=== PATIENT | female | born 1940 | race Caucasian/White ===

== ENCOUNTER 2016-08-31 11:08 | Outpatient (CLI) | payer OTHER | END 2016-08-31 11:09 | disposition home or self-care (01) | DX: Z01.810 Encounter for preprocedural cardiovascular examination (principal); M17.11 Unilateral primary osteoarthritis, right knee ==

== ENCOUNTER 2016-09-25 06:09 | Inpatient (IN) | payer MEDICARE ==
[2016-09-25] MEDS ORDERED: LACTATED RINGERS 1,000 ML IV ONE (07:00)
[2016-09-25] MEDS ORDERED: ceFAZolin 2 GM/50 ML 50 ML IV ONE (07:04)
[2016-09-25] MEDS ORDERED: MORPHINE PF 5 MG/10 ML AMP SUBQ ONE (08:40)
[2016-09-25] MEDS ORDERED: KETOROLAC 15 MG/ML VIAL IM ONE (08:41)
[2016-09-25] MEDS ORDERED: EPINEPHrine 1 MG/ML AMP SUBQ ONE (08:41)
[2016-09-25] MEDS ORDERED: ROPIVACAINE 0.2% PF 20 ML AMPULE SUBQ ONE (08:42)
[2016-09-25] MEDS ORDERED: BUPIVACAINE 0.5%-EPI 1:200000 PF 30 ML VIAL SUBQ ONE ×2 (08:42)
[2016-09-25] MEDS ORDERED: TRANEXAMIC ACID 1,000 MG/10 ML VIAL IV ONE (08:45)
[2016-09-25] MEDS ORDERED: fentaNYL 100 MCG/2 ML VIAL IVP ONE (08:45)
[2016-09-25] MEDS ORDERED: ACETAMINOPHEN 1,000 MG/100 ML VIAL IV ONE (08:45)
[2016-09-25] MEDS ORDERED: MIDAZOLAM 2 MG/2 ML VIAL IVP ONE (08:45)
[2016-09-25] MEDS ORDERED: LIDOCAINE-MPF 2% 5 ML VIAL IM ONE (08:45)
[2016-09-25] MEDS ORDERED: ePHEDrine 50 MG/ML AMP IVP ONE (08:45)
[2016-09-25] MEDS ORDERED: PROPOFOL 200 MG/20 ML VIAL IVP ONE (08:45)
[2016-09-25] MEDS ORDERED: DOCUSATE SODIUM 100 MG CAPSULE PO PRN (10:59)
[2016-09-25] MEDS ORDERED: ONDANSETRON 4 MG/2 ML VIAL IVP PRN (10:59)
[2016-09-25] MEDS ORDERED: diphenhydrAMINE 25 MG CAPSULE PO PRN (10:59)
[2016-09-25] MEDS ORDERED: SENNA 8.6 MG TABLET PO PRN (10:59)
[2016-09-25] MEDS ORDERED: ACETAMINOPHEN 325 MG TABLET PO PRN (10:59)
[2016-09-25] MEDS ORDERED: PROCHLORPERAZINE 10 MG/2 ML VIAL IVP PRN (10:59)
[2016-09-25] MEDS ORDERED: BISACODYL 5 MG TABLET PO PRN (10:59)
[2016-09-25] MEDS ORDERED: SODIUM CHLORIDE FLUSH 0.9% 10 ML SYRINGE IVP PRN (10:59)
[2016-09-25] MEDS ORDERED: BISACODYL 10 MG SUPP PR PRN (10:59)
--- NOTE | 2016-09-25 11:15 | OPERATIVE REPORT ---
Operative Report - General Admit Date: 09/25/16 Procedure Date: 09/25/16 Planned Procedure: Right Total Knee Arthroplasty Pre-Op Diagnosis: Right Knee Osteoarthritis Post Op Diagnosis: Same - Procedure Note Primary Surgeon: Tito Durand MD Anesthesia Provider: Yuri Hammond CRNA Anesthesia Technique: Local, Moderate sedation, Spinal Estimated Blood Loss (in cc): 0 Complications: None. - Other Other Information/Narrative: Implants: Ari Persona Knee System Femoral Component: Size 7 Standard Width, Posterior Stabilized. Tibial Tray: Size E Insert: Posterior Stabilized UHMWPE Size E x 12mm Patella Button: UHMWPE, 9 x 35 mm. Palacos Cement Tourniquet: Right Thigh @ 275 mm Hg x 120 minutes without complications. Fluids: 1800 mL LR Urine: Adequate. Disposition: PACU >> MedSur Condition: Stable.
--- NOTE | 2016-09-25 12:23 | XRAY Report ---
AP AND LATERAL VIEW RIGHT KNEE: 09/25/2016 CLINICAL HISTORY: A 76-year-old female who has had a right total knee arthroplasty. COMPARISON: 03/17/2016. FINDINGS: Interval appearance of right total knee arthroplasty is seen. Anatomical position and alig nment is seen of the right total knee prosthesis. Prominent bone eburnation is seen once again along the posterior aspect of the distal right femur immediately superior to the femoral component of the r ight total knee prosthesis. Air is seen in the anterior aspect of the right knee joint including the suprapatellar bursa. IMPRESSION: EVIDENCE OF RECENT SURGERY IS NOTED WITH RIGHT TOTAL KNEE PROSTHESIS SEEN IN PLACE IN AN ATOMICAL POSITION AND ALIGNMENT. JOB #: [id number] EXT JOB #:[id number]
[2016-09-25] MEDS: SODIUM CHLORIDE 0.45% 1,000 ML IV SCH (14:21)
[2016-09-25] MEDS: SODIUM CHLORIDE FLUSH 0.9% 10 ML SYRINGE IVP SCH ×2 (14:21→21:13)
[2016-09-25] MEDS ORDERED: TEMAZEPAM 15 MG CAPSULE PO PRN (15:07)
[2016-09-25] MEDS: metFORMIN 500 MG TABLET PO SCH (16:27)
[2016-09-25] MEDS: ceFAZolin 2 GM/50 ML 50 ML IV SCH ×2 (16:27→23:29)
[2016-09-25] MEDS ORDERED: metFORMIN 500 MG TABLET PO SCH (17:00)
[2016-09-25] MEDS: ATORVASTATIN 10 MG TABLET PO SCH (20:33)
[2016-09-25] MEDS: POTASSIUM CHLORIDE 20 MEQ TABLET PO SCH (20:33)
[2016-09-25] MEDS: LISINOPRIL 5 MG TABLET PO SCH (20:33)
[2016-09-26] MEDS: SODIUM CHLORIDE 0.45% 1,000 ML IV SCH ×3 (00:40→21:33)
[2016-09-26] MEDS: KETOROLAC 15 MG/ML VIAL IVP PRN ×3 (02:30→16:56)
[2016-09-26] MEDS: oxyCOD/ACETAMIN 5 MG/325 MG TABLET PO PRN ×4 (03:05→16:55)
[2016-09-26] MEDS: SODIUM CHLORIDE FLUSH 0.9% 10 ML SYRINGE IVP SCH ×3 (04:43→21:33)
[2016-09-26 07:25] LABS: HCT - HEMATOCRIT 29.5 % (37.0-47.0); HGB - HEMOGLOBIN 9.9 g/dL (12.0-16.0)
[2016-09-26] MEDS: POTASSIUM CHLORIDE 20 MEQ TABLET PO SCH ×2 (09:00→21:32)
[2016-09-26] MEDS ORDERED: LISINOPRIL 5 MG TABLET PO SCH (09:00)
[2016-09-26] MEDS ORDERED: POTASSIUM CHLORIDE 20 MEQ TABLET PO SCH (09:00)
[2016-09-26] MEDS: MULTIVITAMIN TABLET PO SCH (09:00)
[2016-09-26] MEDS: ASCORBIC ACID CHEW 500 MG TABLET PO SCH (09:00)
[2016-09-26] MEDS: metFORMIN 500 MG TABLET PO SCH ×2 (09:01→16:55)
[2016-09-26] MEDS: LISINOPRIL 5 MG TABLET PO SCH ×2 (09:01→21:32)
[2016-09-26] MEDS: INDAPAMIDE 2.5 MG TABLET PO SCH (09:01)
[2016-09-26] MEDS: ACETAMINOPHEN 1,000 MG/100 ML 100 ML IV PRN ×2 (13:31→20:07)
[2016-09-26] MEDS: ATORVASTATIN 10 MG TABLET PO SCH (21:32)
[2016-09-27] MEDS: KETOROLAC 15 MG/ML VIAL IVP PRN ×4 (00:32→22:06)
[2016-09-27] MEDS: oxyCOD/ACETAMIN 5 MG/325 MG TABLET PO PRN ×5 (00:33→22:06)
[2016-09-27] MEDS: SODIUM CHLORIDE 0.45% 1,000 ML IV SCH ×3 (01:24→21:59)
[2016-09-27] MEDS: SODIUM CHLORIDE FLUSH 0.9% 10 ML SYRINGE IVP SCH ×3 (05:35→21:59)
[2016-09-27] MEDS: metFORMIN 500 MG TABLET PO SCH ×2 (08:56→17:05)
[2016-09-27] MEDS: LISINOPRIL 5 MG TABLET PO SCH ×2 (08:57→21:59)
[2016-09-27] MEDS: INDAPAMIDE 2.5 MG TABLET PO SCH (08:57)
[2016-09-27] MEDS: MULTIVITAMIN TABLET PO SCH (08:57)
[2016-09-27] MEDS: POTASSIUM CHLORIDE 20 MEQ TABLET PO SCH ×2 (08:58→21:58)
[2016-09-27] MEDS: ASCORBIC ACID CHEW 500 MG TABLET PO SCH (08:58)
[2016-09-27] MEDS: ATORVASTATIN 10 MG TABLET PO SCH (21:59)
[2016-09-28] MEDS: SODIUM CHLORIDE FLUSH 0.9% 10 ML SYRINGE IVP SCH ×2 (07:12→13:57)
[2016-09-28] MEDS: INDAPAMIDE 2.5 MG TABLET PO SCH (08:48)
[2016-09-28] MEDS: LISINOPRIL 5 MG TABLET PO SCH (08:48)
[2016-09-28] MEDS: MULTIVITAMIN TABLET PO SCH (08:48)
[2016-09-28] MEDS: ASCORBIC ACID CHEW 500 MG TABLET PO SCH (08:49)
[2016-09-28] MEDS: POTASSIUM CHLORIDE 20 MEQ TABLET PO SCH (08:49)
[2016-09-28] MEDS: metFORMIN 500 MG TABLET PO SCH ×2 (08:50→17:07)
--- NOTE | 2016-09-28 12:44 | PROVIDER PROGRESS NOTE ---
Subjective - Prog Note Date Prog Note Date: 09/27/16 - Subjective Pt reports feeling: Improved (Pain now at 4/10 with medications. Denies N&V. Up with PT. Slowly progressing.) Objective - Vital Signs/Intake & Output Reviewed Vital Signs: Yes Vital Signs: Vital Signs x48h Temp Pulse Resp BP Pulse Ox 09/28/16 08:04 37.0 C 94 18 145/77 H 93 Intake & Output: Intake & Output 09/25/16 09/26/16 09/27/16 09/28/16 23:59 23:59 23:59 23:59 Intake Total 2840 4035 1350 500 Output Total 550 1950 1650 Balance 2290 2085 -300 500 - Objective General Appearance: positive: Alert, Mild distress Eyes Bilateral: positive: Normal inspection ENT: positive: ENT inspection nml Neck: positive: Nml inspection Respiratory: positive: No respiratory distress, Breath sounds nml Cardiovascular: positive: Regular rate & rhythm Peripheral Pulses: 2+ Dorsalis pedis (R), 2+ Dorsalis pedis (L), 2+ Posterior tibialis (R), 2+ Posterior tibialis (L) Abdomen: positive: Non-tender, Nml bowel sounds, No distention. negative: Guarding Back: positive: Nml inspection Skin: positive: Color nml, No rash, Warm, Dry Extremities: positive: No pedal edema (Moderate tendernes to Right Knee.). negative: Calf tenderness, Mookie's sign/cords Neurologic/Psychiatric: positive: Oriented x3, Motor nml, Sensation nml, Mood/ affect nml - Lab Results Fish Bones: 09/26/16 06:45 Assessment/Plan - Problem List (1) Status post right knee replacement Impression: Stable Post-op after Right TKA. Plan: 1. Continue PT, WBAT RLE. 2. Plan discharge to [facility] tomorrow. 3. Pain control. 4. Dressing change tomorrow before transfer.
[2016-09-28] MEDS: SODIUM CHLORIDE 0.45% 1,000 ML IV SCH (12:51)
--- NOTE | 2016-09-28 12:52 | PROVIDER PROGRESS NOTE ---
Subjective - Prog Note Date Prog Note Date: 09/28/16 Prog Note Time: 12:50 - Subjective Pt reports feeling: Improved (Pain much less today. Up in chair eating lunch. Good progress today with PT.) Objective - Vital Signs/Intake & Output Reviewed Vital Signs: Yes Vital Signs: Vital Signs x48h Temp Pulse Resp BP Pulse Ox 09/28/16 08:04 37.0 C 94 18 145/77 H 93 Intake & Output: Intake & Output 09/25/16 09/26/16 09/27/16 09/28/16 23:59 23:59 23:59 23:59 Intake Total 2840 4035 1350 500 Output Total 550 1950 1650 Balance 2290 2085 -300 500 - Objective General Appearance: positive: No acute distress, Alert Eyes Bilateral: positive: Normal inspection ENT: positive: ENT inspection nml Neck: positive: Nml inspection Respiratory: positive: No respiratory distress, Breath sounds nml Cardiovascular: positive: Regular rate & rhythm Peripheral Pulses: 2+ Dorsalis pedis (R), 2+ Dorsalis pedis (L), 2+ Posterior tibialis (R), 2+ Posterior tibialis (L) Abdomen: positive: Non-tender, Nml bowel sounds, No distention. negative: Guarding Back: positive: Nml inspection Skin: positive: Color nml, No rash, Warm, Dry, Other (Wound C/D/I with ,inimal erythema or swelling. New Aquacel placed by nurse.) Extremities: positive: Nml appearance, No pedal edema. negative: Calf tenderness, Mookie's sign/cords - Lab Results Fish Bones: 09/26/16 06:45 Assessment/Plan - Problem List (1) Status post right knee replacement Impression: Stable Post-op after Right TKA. Plan: 1. Discharge to [facility] this afternoon. 2. Continue Rehab, weight bearing as tolerated Right Lower Extremity with walker. 3. f/u Ortho. Dmitry, two weeks, .
--- NOTE | 2016-09-28 13:14 | Discharge Plan ---
Discharge Plan Disposition: DC/Xfer Condition: Good Prescriptions: Bisacodyl [Dulcolax] 10 mg PO Q12H PRN #10 tablet PRN Reason: Constipation Bisacodyl Supp [Dulcolax Supp] 10 mg ME Q12H PRN #10 supp PRN Reason: Constipation Senna [Senokot] 17.2 mg PO Q12H PRN #10 tablet PRN Reason: Constipation oxyCODONE/ACET 5/325 [Percocet 5 mg/325 mg] 1 tab PO Q4HR PRN #20 tablet PRN Reason: Breakthrough Pain Diet: Regular Activity Restrictions: Wt Bearing as Tolerated Shower Restrictions: No Driving Restrictions: Yes Assistance Devices: Walker Weight Bearing: Full Weight No Smoking: If you smoke, Please STOP! Call for help.
[2016-09-28 16:07] VITALS: BP 119/74
--- NOTE | 2016-11-06 07:44 | OPERATIVE REPORT ---
DATE OF SURGERY: 09/25/2016 00:00:00 PREOPERATIVE DIAGNOSIS: Right knee osteoarthritis. POSTOPERATIVE DIAGNOSIS: Right knee osteoarthritis. PLANNED PROCEDURE: Right total knee arthroplasty. SURGEON: Tito Andres MD ANESTHESIA: Yuri Hammond CRNA ANESTHESIA TECHNIQUE: Local plus monitored sedation plus spinal. ESTIMATED BLOOD LOSS: Zero. COMPLICATIONS: None. IMPLANTS: Ari Persona Knee System, femoral component size 7, standard width, posterior stabilized tibial tray size E, insert posterior stabilized ultra high molecular weight polyethylene size E x 12 mm; patella button ultra high molecular weight polyethylene 9 x 35 mm; and Calico cement. TOURNIQUET: Right thigh at 275 mmHg for 120 minutes without complications. FLUIDS: 1800 mL of Lactated Ringer's. URINE: Adequate. DISPOSITION: PACU, then Med/Surg. CONDITION AT END OF PROCEDURE: Stable. SPONGE AND NEEDLE COUNT: Correct. MATERIAL TO LAB: None. INDICATIONS: This is a 76-year-old female with a longstanding history of progressively worsening rig ht knee pain, which has been refractory to activity modification, ambulatory aids (cane and walker), nonsteroidal antiinflammatory medications, OTC acetaminophen, injections, and physical therapy. Despite all these measures, she has been bothered by worsening pain, which now bothers her at night a nd prevents her from undertaking many of her usual daily activities. After a long discussion, she guerra s decided to proceed with right total knee arthroplasty. PROCEDURE IN DETAIL: After consent and identification, the patient was brought to the operating room and placed in a supine position on the operating table. After induction of a spinal anesthetic and appropriate monitoring, along with intravenous sedation and MAC ventilation support, a padded tourniq uet was placed to the right proximal thigh. The right lower extremity was then prepped and draped fr in the usual sterile fashion for knee surgery. After an appropriate timeout was conducted, the right lower extremity was placed in the Barrientos leg johnson, which was secured to the table under sterile conditions. The extremity was exsanguinated wit h an Esmarch bandage, and tourniquet was inflated to 275 mmHg. With the knee in a slightly flexed position, a standard midline medial parapatellar approach was marisa ed out over the knee. The incision was carried down through the skin and subcutaneous tissue with a thin blade scalpel and electrocautery. The subcutaneous tissue was elevated off the underlying retin aculum sharply. A standard medial parapatellar incision was then made through the patellar tendon an d medial retinaculum. The patella was everted. The knee was placed in a flexed position. Osteophyt es were removed with a rongeur and osteotome. A drill was used to make a hole in the distal femur at the junction between the Blumensaat line and the trochlear groove. The hole was enlarged by togglin g the drill. The intramedullary guide was then placed in the distal femur and used to make the stand teena distal femoral cut at 10 mm with a 3-degree angulation. This guide was removed, and a distal fem oral cutting block was positioned. The anterior femoral, posterior femoral, and chamfer cuts were th en made. The distal femoral cutting guide was then removed. We used a combination of electrocautery and a 10-blade scalpel to remove meniscal tissue and resect the posterior and anterior cruciate liga ment remnants. Tuning fork retractor was then placed in the knee, along with Bg Z retractors to e xpose the tibial plateau. The extramedullary guide was placed over the tibia with the lynnette aligned wi th the second metatarsal. Stylus and cheyenne wing were used to measure the low point on the medial tib ial plateau. We elected to make a full 4 mm cut on the medial plateau to get through dense subchondr al bone. Proximal tibial cut was then made. We then sized the tibial tray component and placed our trial tibial tray on the proximal tibia. This was used to make our peg drill hole, and our wedge cut in the tibial plateau. We then inserted the femoral trial component on the distal femur and drilled our lug holes. With this guide in place, we placed a 10 mm trial component on the tibial tray. We noted similar loosening on both flexion and extension. We therefore went to a size 12 mm trial and n oted good tensioning on both flexion and extension. We then clamped the patella and made our patella r cut after measuring the thickness of the patella with the calipers and elected to make a 9 mm cut w ith the oscillating saw. We sized the patella and used a 35 mm trial to drill our 3 lug holes. We t hen thoroughly irrigated the knee joint with 2 liters of sterile saline. We dried the knee, joint wa s suctioned and dry lap sponges as well. Two batches of Calico cement were mixed on the back table. When the cement had reached a doughy consistency, it was used to back our opened femoral, tibial, and patellar components. We began by impacting a posterior stabilized size E tibial tray into the tibia . Aggressive cement resection was used after impaction. We then impacted a size 7 standard width po sterior stabilized femoral component onto the distal femur, and again debrided excess cement. We niall archie the 12 mm trial insert into the tibial tray and placed the knee in extension while we cemented in a patellar button with compression. Cement resection was carried out around the patellar component. When the cement had hardened, we removed the clamp from the patella. We also removed the tibial tray insert. We then used the calipers to insert the posterior stabilized ultra high molecular weight po lyethylene size E x 12 mm tibial insert. With components in place, we thoroughly irrigated the knee with another 2 liters of sterile saline us ing the Pulsavac. We inspected the knee for any excess cement or third body presence. None was foun d. We then sequentially closed the knee with a running interlocked #5 Ethibond suture to the median para patellar retinaculum and patellar tendon. Subcutaneous tissue was closed with interrupted 2-0 Vicryl sutures. Prior to completing this closure, we injected a 60 mL compound of Toradol, bupivacaine, an d Duramorph. After closing the subcuticular layer, we completed our closure with a running 3-0 Monoc ryl suture to the dermis. We elected to use the Mediplex silver impregnated dressing, which is adhes trace across the entire bottom undersurface of the dressing, negating the necessity of Steri-Strips. T his was placed on the incision after injection of local anesthetic along the incision line totalling 30 mL of 0.5% Marcaine with epinephrine. The extremity was then removed from the Barrientos leg johnson. A 6-inch LOURDES was placed from the mid-th igh down to mid-calf, followed by a 4-inch LOURDES from mid-calf to the toes. The tourniquet was deflate d without complication. The patient was extubated and transferred to the recovery room in good contr ol, having tolerated the process well. JOB #: [id number] EXT JOB #:[id number]
--- NOTE | 2016-11-06 07:47 | DISCHARGE SUMMARY ---
DATE OF ADMISSION: 09/25/2016 DATE OF DISCHARGE: 09/28/2016 CONDITION ON DISCHARGE: Good. FINAL DIAGNOSES 1. Status post right knee arthroplasty. 2. Aftercare following right knee total joint replacement. PROCEDURE: Right total knee arthroplasty on 09/25/2016. HISTORY OF PRESENT ILLNESS: This is a 76-year-old female who otherwise is in generally good health wh o has had a longstanding history of right knee pain refractory to the usual methods of stabilizing os teoarthritis and alleviating pain. Despite all of these non-operative measures, she has continued to be bothered by pain, which has limited her daily activities and caused her problems with sleeping at night. She elected to undergo right total knee arthroplasty. LABORATORY DATA: Chemistries: Admission glucose was 116. Final glucose on 09/25/2016 was 126. Hematol ogy: Hemoglobin on 09/26/2016 was 9.9 and hematocrit was 29.5. HOSPITAL COURSE: The patient underwent uneventful left total knee arthroplasty on 09/25/2016. She the n spent the next 2 days being mobilized by physical therapy. Pain control was adequate. She was discharged on postoperative day #3 in good condition. DISCHARGE MEDICATIONS 1. ASA 81 mg p.o. daily. 2. Metformin 500 mg 2 tablets p.o. b.i.d. with meals. 3. Lisinopril 10 mg p.o. b.i.d. 4. Indapamide 2.5 mg tablet p.o. daily. 5. Potassium chloride 20 mEq tablet p.o. b.i.d. 6. Simvastatin 40 mg tablets 1 p.o. daily. 7. Sulindac 150 mg p.o. daily. 8. Temazepam 15 mg 1-2 tablets p.o. q.p.m. p.r.n. no sleep. 9. Naproxen sodium 220 mg 2 tablets p.o. b.i.d. 10. Acetaminophen 500 mg 2 tablets p.o. b.i.d. 11. Multivitamin 1 tablet p.o. daily. 12. Ascorbic acid 500 mg tablet, 1/2 tablet p.o. daily. 13. Dulcolax 5 mg tablet, 2 tablets p.o. q.12 hours p.r.n. 14. Bisacodyl suppository 10 mg MT q.12 hours p.r.n., #10. 15. Senna 8.6 mg tablet, 2 tablets p.o. q.12 hours p.r.n., #10. 16. Oxycodone/acetaminophen 5/325 mg 1 tablet p.o. q.4 hours p.r.n. pain, #20. Total acetaminophen fr om all sources not to exceed 4000 mg daily. DISCHARGE INSTRUCTIONS 1. Diet: The patient is discharged to home on a diabetic diet. 2. Activity: Weightbearing as tolerated with walker for ambulation. 3. Disposition: The patient discharged to home. 4. Followup appointments: Dr. Andres, orthopedic surgery, in 2 weeks ([phone]) for wound check. 5. CODE STATUS: FULL CODE. JOB #: [id number] EXT JOB #:[id number]
== END 2016-09-28 17:45 | DRG 470 ==
LOC: MS 06:09
PROVIDERS: ADMIT Orthopaedic Surgery; ATTEND Orthopaedic Surgery
PROC: 0SRC0J9 Replacement of Right Knee Joint with Synthetic Substitute, Cemented, Open Approach (ICD-10-PCS; principal; 2016-09-25 07:30)
DX: M17.11 Unilateral primary osteoarthritis, right knee (principal); I10 Essential (primary) hypertension; Z79.82 Long term (current) use of aspirin; Z79.899 Other long term (current) drug therapy
CPT/HCPCS: 36415; 85014; 85018

== ENCOUNTER 2016-10-27 10:55 | Outpatient (CLI) | payer MEDICARE | END 2016-10-27 10:56 | disposition home or self-care (01) | LOC: LAB.R 10:55 | PROVIDERS: ATTEND Orthopaedic Surgery | DX: T81.4XXA Infection following a procedure, initial encounter (principal) | CPT/HCPCS: 87070; 87077; 87205 ==

== ENCOUNTER 2016-12-06 11:14 | Outpatient (CLI) | payer MEDICARE ==
--- NOTE | 2016-12-06 16:39 | XRAY Report ---
LEG LENGTH STUDY: 12/06/2016 CLINICAL INDICATION: Unequal limb length. FINDINGS: Frontal scanogram of the lower extremities was performed. The right femur, measured from acetabular roof to prosthetic tibial plateau, measures 45.3 cm, and th e left femur measures 45.3 cm. The right lower leg, measured from prosthetic tibial plateau to ankle mortise, measures 30 cm. The left lower leg measures 36.1 cm. IMPRESSION: A 6.1 CM LEG LENGTH DISCREPANCY, IN THE LOWER LEGS, RIGHT SHORTER THAN LEFT. JOB #: [id number] EXT JOB #:
== END 2016-12-06 11:15 | disposition home or self-care (01) ==
LOC: DI 11:14
PROVIDERS: ATTEND Orthopaedic Surgery
DX: M21.761 Unequal limb length (acquired), right tibia (principal); T81.4XXA Infection following a procedure, initial encounter; Z96.651 Presence of right artificial knee joint
CPT/HCPCS: 77073

== ENCOUNTER 2018-01-31 13:45 | Outpatient (CLI) | payer MEDICARE ==
--- NOTE | 2018-02-01 10:06 | Mammography Report ---
Reason: SCREENING MAMMO Procedure Date: 01/31/2018 Accession Number: [id number] / [id number] Procedure: [facility] - Screening Mammo w/Jairo CPT Code: FULL RESULT: EXAM: Screening Mammo w/Jairo DATE: 01/31/2018 2:19 PM CLINICAL HISTORY: Routine screening. Late childbearing. Family history of breast cancer. TECHNIQUE: Bilateral CC and MLO views were obtained. COMPARISON: 11/02/2015, 10/22/2014, 09/16/2013 and 09/03/2012 FINDINGS: The breast tissue is heterogeneously dense. No significant interval change. No suspicious masses, clustered microcalcifications, or regions of architectural distortion are identified. Extensive bilateral benign-appearing calcifications are similar to previous IMPRESSION: Benign findings RECOMMENDATION: Routine annual screening unless otherwise clinically indicated. BIRADS CATEGORY 2: Benign findings STANDARD QUALIFYING STATEMENTS: 1. This examination was not reviewed with the aid of Computer-Aided Detection (CAD). 2. A negative or benign imaging report should not delay biopsy if clinically suspicious findings are present. Consider surgical consultation if warrented. More than 5% of cancers are not identified by imaging. 3. Dense breasts may obscure an underlying neoplasm. 4. This examination was reviewed with the aid of 3D breast imaging (tomosynthesis).
== END 2018-01-31 13:46 | disposition home or self-care (01) ==
LOC: DI 13:45
DX: Z12.31 Encounter for screening mammogram for malignant neoplasm of breast (principal); Z80.3 Family history of malignant neoplasm of breast
CPT/HCPCS: 77063; 77067

== ENCOUNTER 2018-04-04 09:51 | Outpatient (CLI) | payer MEDICARE ==
[2018-04-04 12:38] LABS: CREATININE 0.5 mg/dL (0.4-1.0)
[2018-04-04] MEDS ORDERED: IOVERSOL 320 100 ML VIAL IVP ONE ×2 (12:54→13:10)
--- NOTE | 2018-04-04 23:17 | XRAY Report ---
Reason: HEMATURIA,UNSPECIFIED, PAIN IN RIGHT SHOULDER Procedure Date: 04/04/2018 Accession Number: [id number] / [id number] Procedure: XR - Shoulder 3 View RT CPT Code: FULL RESULT: EXAM: RIGHT SHOULDER RADIOGRAPHY EXAM DATE: 04/04/2018 12:47 PM. CLINICAL HISTORY: Right shoulder pain. COMPARISON: None. TECHNIQUE: 3 views. FINDINGS: Bones: Normal. No fracture or bone lesion. Joints: No dislocation. Loss of joint space with sclerosis and spurring involving the glenohumeral joint. Soft tissues: The visualized hemithorax is unremarkable. Soft tissue calcification inferior to the glenohumeral joint. IMPRESSION: Advanced glenohumeral osteoarthritis. RAD[facility]
--- NOTE | 2018-04-08 08:47 | CT Report ---
Reason: HEMATURIA Procedure Date: 04/04/2018 Accession Number: [id number] / [id number] Procedure: CT - IVP CPT Code: FULL RESULT: EXAM: CT ABDOMEN AND PELVIS WITHOUT AND WITH CONTRAST (CT IVP) EXAM DATE: 04/04/2018 01:35 PM. CLINICAL HISTORY: Hematuria. COMPARISONS: None. TECHNIQUE: Routine helical imaging was performed through the kidneys, ureters and bladder in the precontrast, postcontrast and delayed phase. IV Contrast: Optiray 320, 100 mL. Reconstructions: Coronal and sagittal. In accordance with CT protocol optimization, one or more of the following dose reduction techniques were utilized for this exam: automated exposure control, adjustment of mA and/or KV based on patient size, or use of iterative reconstructive technique. FINDINGS: Lung Bases: Unremarkable. Right Kidney/Ureter: No stones, hydronephrosis, or solid masses. Simple upper pole cyst is noted. Left Kidney/Ureter: No stones, hydronephrosis, or masses. Other Solid Organs: The liver, spleen, pancreas, gallbladder, and adrenal glands are unremarkable with the exception of hepatic steatosis.The bile ducts are unremarkable. Peritoneal Cavity/Bowel: Normal. No free fluid, free air or adenopathy. No masses. Bowel loops are unremarkable. Pelvic Organs: Evaluation of the pelvic area is somewhat limited by streak artifact due to the right total hip arthroplasty. No bladder stones, obstruction or masses. The visualized pelvic organs are unremarkable. Vasculature: Markedly atherosclerotic without an infrarenal abdominal aneurysm. Bones: Normal. Other: None. IMPRESSION: No urinary tract masses, stones or obstruction. Hepatic steatosis. RADIA
== END 2018-04-04 09:52 | disposition home or self-care (01) ==
LOC: DI 09:51
PROVIDERS: ATTEND Physician Assistant
DX: R31.9 Hematuria, unspecified (principal); M19.011 Primary osteoarthritis, right shoulder
CPT/HCPCS: 36415; 73030; 74178; 82565; Q9967

== ENCOUNTER 2018-06-10 14:47 | Outpatient (CLI) | payer MEDICARE ==
--- NOTE | 2018-06-11 11:34 | MRI Report ---
Reason: PAIN IN RIGHT SHOULDER Procedure Date: 06/10/2018 Accession Number: [id number] / [id number] Procedure: MRI - Shoulder RT W/O CPT Code: FULL RESULT: EXAM: RIGHT SHOULDER MRI WITHOUT CONTRAST EXAM DATE: 06/10/2018 05:17 PM. CLINICAL HISTORY: Pain in right shoulder. COMPARISON: SHOULDER 3 VIEW RT 04/04/2018 12:30 PM. TECHNIQUE: Multiplanar, multisequence T1-weighted and fluid-sensitive sequences of the shoulder without contrast. Other: None. FINDINGS: Acromioclavicular Region: The acromion is type II. There is severe osteoarthritis of the acromioclavicular joint with superiorly and inferiorly projecting osteophytes, joint effusion, and edema of the articular surfaces. There is a large bursal effusion. The bursa communicates with the glenohumeral joint space. Glenohumeral Region: There is superior subluxation of the humeral head. It articulates with the inferior surface of the acromion and clavicle. There is severe erosion of the hyaline cartilage of the glenohumeral joint with large regions of denuded bone. Subchondral cysts are visible in the glenoid, and there are humeral head osteophytes. There is a large joint effusion with inflammatory debris. There is at least one ossified loose body in the inferior joint recess measuring approximately 1.2 cm in maximum diameter. The findings are consistent with severe osteoarthritis. Bone Marrow: There is moderate edema of the humeral head and the bony glenoid. Labrum: The labrum is severely frayed. Musculature/Rotator Cuff: Complete rupture with severe atrophy of supraspinatus and infraspinatus. Near complete rupture of subscapularis with moderate atrophy. Biceps Tendon: Severe tendinosis and partial-thickness tearing of the long head of biceps. Other: The subcutaneous tissues are unremarkable. IMPRESSION: 1. Chronic full-thickness rotator cuff tears with atrophy. 2. Superior subluxation of the humeral head with chronic severe glenohumeral osteoarthritis. There is a large joint effusion with at least one loose body. 3. Pseudoarticulation between the superior humeral head and the inferior acromion. [facility] MUSCULOSKELETAL RADIOLOGY SECTION
== END 2018-06-10 14:48 | disposition home or self-care (01) ==
LOC: DI 14:47
PROVIDERS: ATTEND Physician Assistant
DX: M75.121 Complete rotator cuff tear or rupture of right shoulder, not specified as traumatic (principal); M62.511 Muscle wasting and atrophy, not elsewhere classified, right shoulder; M24.811 Other specific joint derangements of right shoulder, not elsewhere classified; M19.011 Primary osteoarthritis, right shoulder; M25.411 Effusion, right shoulder; M24.011 Loose body in right shoulder; M75.81 Other shoulder lesions, right shoulder

== ENCOUNTER 2018-07-04 12:54 | Outpatient (CLI) | payer MEDICARE ==
[2018-07-04] MEDS ORDERED: BUFFERED LIDOCAINE 10 ML SYRINGE ONE (13:30)
[2018-07-04] MEDS ORDERED: IOTHALAMATE MEGLUMINE 50 ML VIAL ONE (13:30)
[2018-07-04] MEDS ORDERED: IOTHALAMATE MEGLUMINE 50 ML VIAL IVP ONE (14:14)
[2018-07-04] MEDS ORDERED: ROPIVACAINE 0.5% PF 20 ML AMPULE IU ONE (14:14)
[2018-07-04] MEDS ORDERED: TRIAMCINOLONE 40 MG/ML VIAL IM ONE (14:14)
[2018-07-04] MEDS ORDERED: BUFFERED LIDOCAINE 10 ML SYRINGE IU ONE (14:14)
--- NOTE | 2018-07-04 15:03 | XRAY Report ---
Reason: ROTATOR CUFF SHOULDER SYNDROME AND ALLIED DISORDER Procedure Date: 07/04/2018 Accession Number: [id number] / [id number] Procedure: FL - Inj/Aspiration Major Joint CPT Code: FULL RESULT: EXAM: RIGHT SHOULDER INJECTION WITH FLUOROSCOPIC GUIDANCE EXAM DATE: 07/04/2018 02:03 PM. CLINICAL HISTORY: Rotator cuff shoulder syndrome and allied disorder. COMPARISON: None. TECHNIQUE: The risks, benefits, and alternatives of the procedure were discussed with the patient. All questions were answered. Written and verbal consent were obtained. The glenohumeral joint was marked under fluoroscopy and prepped and draped in a sterile manner. Local anesthesia was performed with 1% lidocaine. A 22-gauge needle was then inserted into the glenohumeral joint. 10 mL of a solution containing 25% 5 mL ropivacaine, 25% iodinated contrast, and 1 mL Kenalog was then injected. The needle was removed without immediate complication. Other: None. Fluoroscopy Time: 0.4 minutes. Number of Images: 7. FINDINGS: Bones and joints: No fracture or subluxation. Injection: Fluoroscopic images demonstrate needle placement and contrast in the glenohumeral joint. No contrast extravasation outside of the glenohumeral joint. IMPRESSION: Successful fluoroscopically guided arthrographic injection of the shoulder. [facility]
== END 2018-07-04 12:55 | disposition home or self-care (01) ==
LOC: DI 12:54
PROVIDERS: ATTEND Orthopaedic Surgery Sports Medicine
DX: M75.101 Unspecified rotator cuff tear or rupture of right shoulder, not specified as traumatic (principal)
CPT/HCPCS: 20610; Q9961

== ENCOUNTER 2019-01-28 08:00 | Outpatient (CLI) | payer MEDICARE | END 2019-01-28 23:59 | disposition home or self-care (01) | LOC: LAB.R 08:00 | PROVIDERS: ATTEND Podiatrist | DX: E11.621 Type 2 diabetes mellitus with foot ulcer (principal) | CPT/HCPCS: 87070; 87077; 87205 ==

== ENCOUNTER 2019-11-11 13:05 | Emergency (ER) | payer MEDICARE ==
--- NOTE | 2019-11-11 13:37 | ED Physician Documentation ---
History of Present Illness - Stated complaint Stated Complaint: RT FOOT SWELLING - Chief complaint Chief Complaint: Ext Problem - History obtained from History obtained from: Patient - History of Present Illness Timing: How many days ago (1) Pain level max: 0 Pain level now: 0 - Additonal information Additional information: 79-year-old female presents to the emergency department for evaluation of right small toe and foot swelling. She is diabetic and reports that she just noticed the small toe was swollen yesterday but she had some generalized foot swelling this a.m. She does report poor sensation in both of her lower extremities. She denies checking blood sugars routinely at home. 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 No recent antibiotics. Review of Systems Constitutional: denies: Fever, Chills Cardiac: denies: Chest pain / pressure, Palpitations Respiratory: denies: Dyspnea GI: denies: Abdominal Pain, Abdominal Swelling, Nausea, Vomiting : denies: Dysuria Skin: reports: Lesions (Right small toe ulceration medial side.), Other (Generalized poor foot hygiene. Bunions bilaterally) Musculoskeletal: denies: Neck pain, Back pain Neurologic: reports: Numbness (Neuropathy). denies: Syncope, Seizure, Confused Endocrine: reports: Other (diabetes) PD PAST MEDICAL HISTORY - Past Medical History Cardiovascular: Hypertension, High cholesterol Respiratory: None Endocrine/Autoimmune: Type 2 diabetes GI: GERD, Chronic diarrhea : None HEENT: Chronic vision loss Psych: None Musculoskeletal: Osteoarthritis Derm: None - Past Surgical History General: Colonoscopy Ortho: Other HEENT: Other Derm: Skin cancer surgery - Present Medications Home Medications: Ambulatory Orders Medication Instructions Recorded Confirmed Aspirin Chewable [[place] 81 mg PO DAILY 09/14/15 03/25/19 Aspirin] Indapamide 2.5 mg PO DAILY 09/14/15 03/25/19 Potassium Chloride [K-Dur] 20 meq PO BID 09/14/15 03/25/19 Simvastatin 20 mg PO DAILY 09/14/15 03/25/19 lisinopriL [Lisinopril] 10 mg PO BID 09/14/15 03/25/19 metFORMIN [Glucophage] 1,000 mg PO BIDWM 09/14/15 03/25/19 Sulindac 150 mg PO DAILY 09/13/16 03/25/19 Acetaminophen 500 mg PO TID 09/25/16 03/25/19 Ascorbic Acid [Vitamin C] 250 mg PO DAILY 09/25/16 03/25/19 Multivitamin [Theragran] 1 tab PO DAILY 09/25/16 03/25/19 Temazepam 15 - 30 mg PO QPM PRN 09/25/16 03/25/19 Cephalexin [Keflex] 500 mg PO Q6H #40 capsule 11/11/19 Doxycycline Hyclate 100 mg PO BID #20 capsule 11/11/19 - Allergies Allergies/Adverse Reactions: Allergies Allergy/AdvReac Type Severity Reaction Status Date / Time No Known Drug Allergies Allergy Verified 11/11/19 13:23 - Social History Does the pt smoke?: No Smoking Status: Never smoker Does the pt drink ETOH?: No Does the pt have substance abuse?: No - Immunizations Immunizations are current?: Yes PD ED PE EXPANDED - General General: Alert, No acute distress - Cardiac Cardiac: Regular Rate, Radial strong equal, Pedal strong equal, Cap refill < 2 sec - Respiratory Respiratory: Clear to ausultation kemar. No: Distress, Labored - Abdomen Abdomen: Normal Bowel sounds. No: Tender to palpation - Derm Derm: Normal color - Extremities Extremities: Right foot (Right small toe grossly erythematous with milky drainage. 2 mm ulceration noted medial side. Erythema extends to mid right foot. No tenderness elicited.), Right toe(s) Results - Vitals Vitals: Vital Signs - 24 hr 11/11/19 13:11 Temperature 36.7 C Heart Rate 84 Respiratory 16 Rate Blood Pressure 129/62 O2 Saturation 95 Oxygen O2 Source Room air - Labs Labs: Laboratory Tests 11/11/19 11/11/19 11/11/19 13:48 13:48 13:48 WBC 13.2 H RBC 4.45 Hgb 13.8 Hct 40.5 MCV 91.0 MCH 31.0 MCHC 34.1 RDW 13.1 Plt Count 302 MPV 8.3 Neut # (Auto) 10.5 H Lymph # (Auto) 1.5 [place] # (Auto) 1.1 H Eos # (Auto) 0.1 Baso # (Auto) 0.1 Absolute Nucleated RBC 0.00 Nucleated RBC % 0.0 ESR 28 Sodium 134 L Potassium 3.7 Chloride 96 L Carbon Dioxide 26 Anion Gap 12.0 BUN 18 Creatinine 0.6 Estimated GFR (MDRD) 97 Glucose 117 H Calcium 9.7 Total Bilirubin 0.9 AST 21 ALT 22 Alkaline Phosphatase 64 C-Reactive Protein 13.7 H Total Protein 7.6 Albumin 4.4 Globulin 3.2 Albumin/Globulin Ratio 1.4 Lipase 37 PD MEDICAL DECISION MAKING - ED course Complexity details: reviewed results, re-evaluated patient, d/w patient, d/w family ED course: 79-year-old female presents to the emergency department for evaluation of right small toe and right foot erythema and swelling. She reports that she noticed swelling of the toe yesterday but the erythema of the foot is new today. She is a diabetic that has a previous history of foot ulcerations. - On exam today we do note a right small medial toe ulceration that is approximately 2 mm in size. Laboratory findings are most significant for a CRP of 10 as well as mild leukocytosis at 13,000. X-ray of the foot did not show any findings consistent with osteomyelitis. - This is a high risk woman (hx of dm) with right foot cellulitis likely se condary to a small toe ulceration on the medial side. Patient will be given 1 g of ceftriaxone here in the emergency department and discharged with prescription for both Keflex and doxycycline. We will also advise warm salt water soaks. If over the next 48 to 72 hours she is having worsening signs of infection such as increased redness erythema or milky drainage she is to return immediately for reevaluation and consideration of admission IV antibiotics Departure - Departure Disposition: 01 Home, Self Care Clinical Impression: Cellulitis of foot associated with diabetes mellitus Toe ulcer due to DM Qualifiers: Diabetes mellitus type: type 2 Laterality: right Non-pressure ulcer stage: limited to breakdown of skin Qualified Code(s): E11.621 - Type 2 diabetes mellitus with foot ulcer; L97.511 - Non-pressure chronic ulcer of other part of right foot limited to breakdown of skin Condition: Serious Record reviewed to determine appropriate education?: Yes Instructions: Cellulitis Dc Follow-Up: Jessica Hammond PA [Primary Care Provider] - Prescriptions: Doxycycline Hyclate 100 mg PO BID #20 capsule Cephalexin [Keflex] 500 mg PO Q6H #40 capsule Comments: Dayana you have an infection in your right foot. This is most likely because you have a small ulcer on the inside portion of your small toe. Please soak your foot in warm Epson salt soaks for 10 minutes twice a day. Following the salt soaks apply any antibiotic ointment such as Neosporin or bacitracin to the ulceration. I have prescribed you a 10-day course of oral antibiotics to begin taking this evening. If despite the antibiotics you are having increased toe redness, foot redness, milky or purulent drainage from the toe ulcer or feel that the infection is worsening in any way then please return immediately to the emergency department I would like you to follow-up this ED visit with your primary care doctor as soon as possible as well as your foot doctor.
[2019-11-11 13:56] LABS: BASOPHILS # (AUTO) 0.1 10^3/uL (0.0-0.1); BASOPHILS % (AUTO) 0.4 %; EOSINOPHILS # (AUTO) 0.1 10^3/uL (0.0-0.7); EOSINOPHILS % (AUTO) 0.5 %; HGB - HEMOGLOBIN 13.8 g/dL (12.0-16.0); LYMPHOCYTES # (AUTO) 1.5 10^3/uL (1.5-3.5); LYMPHOCYTES % (AUTO) 11.1 %; MEAN CORPUSCULAR HGB CONC 34.1 g/dL (32.0-36.0); MEAN PLATELET VOLUME 8.3 fL (7.9-10.8); MONOCYTES # (AUTO) 1.1 10^3/uL (0.0-1.0); MONOCYTES % (AUTO) 8.6 %; NEUTROPHILS # (AUTO) 10.5 10^3/uL (1.5-6.6); NEUTROPHILS % (AUTO) 79.1 %; PLT - PLATELET COUNT 302 10^3/uL (130-450); RED BLOOD COUNT 4.45 10^6/uL (4.20-5.40); RED CELL DISTRIBUTION WIDTH 13.1 % (12.0-15.0); WHITE BLOOD COUNT 13.2 x10^3/uL (4.8-10.8)
--- NOTE | 2019-11-11 14:00 | XRAY Report ---
PROCEDURE: Foot 2 View RT INDICATIONS: cellulitis; r/o osteo 4th toe TECHNIQUE: 2 views of the foot were acquired. COMPARISON: None FINDINGS: Bones: Lateral deviation at the first through fourth MTP joints are seen. There is lateral subluxatio n at fifth PIP joint. Fixation hardware in the first TMT joint and distal fibular shaft is seen. Arth roplasty at the tibiotalar joint is also seen. No gross hardware loosening or failure. No gross acute fracture or dislocation. Osteoarthritic changes are noted in mid foot joints. No definite bony erosi ve changes are seen. No fractures or dislocations. No suspicious bony lesions. Soft tissues: No tibiotalar joint effusion. Achilles tendon appears normal. IMPRESSION: 1. Postsurgical changes at first TMT joint and ankle joint. No gross hardware complication. 2. Midfoot osteoarthritis. Lateral deviation at first through fourth MTP joints and lateral subluxati on at fifth PIP joint. Mild forefoot joint osteoarthritis. 3. No radiographic evidence of osteomyelitis. Reviewed by: Roberto Melissa MD on 11/11/2019 1:59 PM PDT Approved by: Roberto Melissa MD on 11/11/2019 1:59 PM PDT Station ID: [id number]
[2019-11-11 14:16] LABS: ALBUMIN 4.4 g/dL (3.2-5.5); ALBUMIN/GLOBULIN RATIO 1.4 (1.0-2.2); BILIRUBIN,TOTAL 0.9 mg/dL (0.2-1.0); CALCIUM 9.7 mg/dL (8.5-10.3); CREATININE 0.6 mg/dL (0.4-1.0); CRP - C-REACTIVE PROTEIN 13.7 mg/dL (0-1.0); TOTAL PROTEIN 7.6 g/dL (6.7-8.2)
[2019-11-11] MEDS ORDERED: cefTRIAXone 1 GM VIAL IM STA (14:32)
[2019-11-11] MEDS ORDERED: LIDOCAINE 1% 2 ML VIAL MC ONE (14:32)
[2019-11-11 14:56] VITALS: BP 169/67
== END 2019-11-11 15:02 | disposition home or self-care (01) ==
LOC: ED 13:05
DX: L03.115 Cellulitis of right lower limb (principal); E11.621 Type 2 diabetes mellitus with foot ulcer; L97.511 Non-pressure chronic ulcer of other part of right foot limited to breakdown of skin; E11.40 Type 2 diabetes mellitus with diabetic neuropathy, unspecified; I10 Essential (primary) hypertension; E78.00 Pure hypercholesterolemia, unspecified; H54.7 Unspecified visual loss; Z79.82 Long term (current) use of aspirin; Z79.84 Long term (current) use of oral hypoglycemic drugs
CPT/HCPCS: 36415; 80053; 83690; 85025; 85651; 86140; 96372; 99284

== ENCOUNTER 2020-05-11 14:56 | Outpatient (CLI) | payer MEDICARE ==
--- NOTE | 2020-05-12 14:34 | Mammography Report ---
BILATERAL DIGITAL SCREENING MAMMOGRAM 3D/2D: 05/11/2020 CLINICAL: Routine screening. Comparison is made to exams dated: 01/31/2018 mammogram, 11/02/2015 mammogram, 10/22/2014 mammogram, a nd 09/16/2013 mammogram - [facility]. The tissue of both breasts is heterogeneously dense. This may lower the sensitivity of mammography. No significant masses, calcifications, or other findings are seen in either breast. There has been no significant interval change. IMPRESSION: NEGATIVE There is no mammographic evidence of malignancy. A 1 year screening mammogram is recommended. This exam was interpreted at Station ID: [id number]. NOTE: For mammograms, a report in lay terms will be sent to the patient. Approximately 15% of breast malignancies will not be visualized mammographically. In the management of a palpable breast mass, a negative mammogram must not discourage biopsy of a clinically suspicious lesion. Electronically Signed By: Alejandro Wilson M.D. ddp/penrad:05/11/2020 17:00:53 ACR BI-RADS Category 1: Negative 3341F PARENCHYMAL PATTERN: (D) - The breast(s) demonstrate(s) heterogeneously dense fibroglandular amanda soto. BI-RADS CATEGORY: (1) - 1 RECOMMENDATION: (ANNUAL) - Recommend routine annual screening mammography. [id number] 1 year screening LATERALITY: (B)
== END 2020-05-11 14:57 | disposition home or self-care (01) ==
LOC: DI.S 14:56
PROVIDERS: ATTEND Nurse Practitioner Family
DX: Z12.31 Encounter for screening mammogram for malignant neoplasm of breast (principal)

== ENCOUNTER 2020-05-21 08:00 | Outpatient (CLI) | payer MEDICARE ==
[2020-05-21 17:57] LABS: BILIRUBIN,URINE NEGATIVE (NEGATIVE); GLUCOSE, URINE (UA) NEGATIVE (NEGATIVE); KETONES,URINE (UA) TRACE mg/dL (NEGATIVE); LEUKOCYTE ESTERASE, URINE LARGE (NEGATIVE); NITRITE,URINE NEGATIVE (NEGATIVE); OCCULT BLOOD,URINE SMALL (NEGATIVE); PH,URINE 7.5 PH (5.0-7.5); PROTEIN,URINE 100 mg/dL (NEGATIVE); UROBILINOGEN,URINE 0.2 (NORMAL) E.U./dL (NORMAL)
[2020-05-21 18:03] LABS: BACTERIA,URINE Many /HPF (None Seen); CLARITY,URINE CLOUDY (CLEAR); SQUAMOUS EPITHELIAL CELL,UR FEW Squamous (<= Few)
== END 2020-05-21 23:59 | disposition home or self-care (01) ==
LOC: LAB.R 08:00
PROVIDERS: ATTEND Obstetrics & Gynecology
DX: R30.0 Dysuria (principal)
CPT/HCPCS: 81001; 87077; 87086; 87181

== ENCOUNTER 2020-07-14 07:33 | Day surgery (SDC) | payer MEDICARE ==
[2020-07-14] MEDS ORDERED: LACTATED RINGERS 1,000 ML IV ONE (07:53)
[2020-07-14 09:39] LABS: B. PARAPERTUSSIS- RESP PCR PAN NOT DETECTED; B. PERTUSSIS- RESP PCR PANEL NOT DETECTED; C. PNEUMONIAE- RESP PCR PANEL NOT DETECTED; CORONAVIRUS 229E-RESP PCR NOT DETECTED; CORONAVIRUS HKU1-RESP PCR NOT DETECTED; CORONAVIRUS NL63-RESP PCR NOT DETECTED; CORONAVIRUS OC43-RESP PCR NOT DETECTED; HUMAN METAPNEUMOVIRUS NOT DETECTED; INFLUENZA A- RESP PCR PANEL NOT DETECTED; INFLUENZA B - RESP PCR PANEL NOT DETECTED; M. PNEUMONIAE- RESP PCR PANEL NOT DETECTED; PARAINFLUENZA VIRUS 1 NOT DETECTED; PARAINFLUENZA VIRUS 2 NOT DETECTED; PARAINFLUENZA VIRUS 3 NOT DETECTED; PARAINFLUENZA VIRUS 4 NOT DETECTED; RHINOVIRUS/ENTEROVIRUS NOT DETECTED; RSV- RESP PCR PANEL NOT DETECTED; SARS-CoV-2 -RESP PCR PANEL NOT DETECTED
[2020-07-14] MEDS ORDERED: BUPIVACAINE 0.25% PF 30 ML VIAL ONE (09:44)
[2020-07-14] MEDS ORDERED: LIDOCAINE 2%-EPI 1:100000 20 ML MDV ONE (09:44)
[2020-07-14] MEDS ORDERED: LIDOCAINE MPF 1%-EPI 1:200000 30 ML VIAL SUBQ ONE (09:52)
[2020-07-14] MEDS ORDERED: BUPIVACAINE 0.25% PF 30 ML VIAL SUBQ ONE (09:52)
[2020-07-14] MEDS ORDERED: HYDROmorphone 0.5 MG/0.5 ML SYRINGE IVP PRN (09:53)
[2020-07-14] MEDS ORDERED: ONDANSETRON 4 MG/2 ML VIAL IVP PRN (09:53)
[2020-07-14] MEDS ORDERED: fentaNYL 100 MCG/2 ML VIAL IVP PRN (09:53)
[2020-07-14] MEDS ORDERED: METOCLOPRAMIDE 10 MG/2 ML VIAL IVP PRN (09:53)
[2020-07-14] MEDS ORDERED: ePHEDrine 50 MG/ML VIAL IVP PRN (09:53)
[2020-07-14] MEDS ORDERED: ATROPINE ABBOJECT 1 MG/10 ML SYRINGE IVP PRN (09:53)
[2020-07-14] MEDS ORDERED: NALOXONE 0.4 MG/ML VIAL IVP PRN (09:53)
[2020-07-14] MEDS ORDERED: MORPHINE 2 MG/ML CARPUJECT IVP PRN (09:53)
--- NOTE | 2020-07-14 09:53 | ANESTHESIA ---
Pre-Anesthesia VS, & Labs - Diagnosis retained pessary - Procedure removal of retained pessary Vital Signs: Temp Pulse Resp BP Pulse Ox 36.5 C 77 18 151/77 H 100 07/14/20 07:57 07/14/20 07:57 07/14/20 07:57 07/14/20 07:57 07/14/20 07:57 Height: 5 ft 4 in Weight (kg): 65.5 kg Body Mass Index: 24.7 BMI Classification: Healthy weight - NPO >8 hours - Is Patient ?: No - Lab Results Current Lab Results: Laboratory Tests 07/14/20 08:20: POC Whole Bld Glucose 107 H Lab results reviewed: Yes Home Medications and Allergies Aspirin Chewable [[place] Aspirin] 81 mg PO DAILY 09/14/15 Indapamide 2.5 mg PO BID 09/14/15 Simvastatin 20 mg PO DAILY 09/14/15 lisinopriL [Lisinopril] 10 mg PO BID 09/14/15 metFORMIN [Glucophage] 1,000 mg PO BIDWM 09/14/15 Sulindac 150 mg PO DAILY 09/13/16 Ascorbic Acid [Vitamin C] 1,000 mg PO DAILY 09/25/16 Multivitamin [Theragran] 1 tab PO DAILY 09/25/16 Temazepam 15 - 30 mg PO QPM PRN 09/25/16 Allergies/Adverse Reactions: Allergies Allergy/AdvReac Type Severity Reaction Status Date / Time No Known Drug Allergies Allergy Verified 11/11/19 13:23 Anes History & Medical History - Anesthetic History Anesthesia Complications: reports: No previous complications Family history of Anesthesia Complications: Denies Family history of Malignant Hyperthermia: Denies - Medical History Cardiovascular: reports: Hypertension, High cholesterol Pulmonary: reports: None Gastrointestinal: reports: GERD, Chronic diarrhea Urinary: reports: None Musculoskeletal: reports: Osteoarthritis Endocrine/Autoimmune: reports: Type 2 diabetes Skin: reports: None Smoking Status: Never smoker - Surgical History General: reports: Colonoscopy Eyes Ears Nose Throat (EENT): reports: Other Orthopedic: reports: Other Dermatologic: reports: Skin cancer surgery Exam General: Alert, Oriented x3, Cooperative, No acute distress Dental: WNL Mouth Openin Fingerbreadth Neck Mobility: Normal Mallampati classification: II Respiratory: Lungs clear, Normal breath sounds, No respiratory distress, No accessory muscle use Cardiovascular: Regular rate, Normal S1, Normal S2, No murmurs Plan Anesthesia Type: General Consent for Procedure(s) Verified and Reviewed: Yes Code Status: Attempt Resuscitation ASA classification: 2-Mild systemic disease Is this case an emergency?: No
[2020-07-14] MEDS ORDERED: LIDOCAINE-MPF 2% 5 ML VIAL ONE (09:55)
[2020-07-14] MEDS ORDERED: ONDANSETRON 4 MG/2 ML VIAL ONE (09:55)
[2020-07-14] MEDS ORDERED: PROPOFOL 200 MG/20 ML VIAL IVP ONE (09:55)
[2020-07-14] MEDS ORDERED: DEXAMETHASONE 4 MG/ML VIAL ONE (09:55)
[2020-07-14] MEDS ORDERED: LACTATED RINGERS 1,000 ML IV SCH (10:00)
[2020-07-14] MEDS ORDERED: LACTATED RINGERS 200 ML IV ONE (10:43)
--- NOTE | 2020-07-14 10:51 | OPERATIVE REPORT ---
Operative Report - Other Other Information/Narrative: Date of service: 07/14/2020 Preoperative diagnosis: Foreign body in the vagina (pessary) Postoperative diagnosis: Same Procedure: Removal of foreign body from the vagina Surgeon: Sayda Brake Repairer Bus: none Anesthesia: General Estimated Blood Loss: none IV Fluids: n/a Urine output: n/a Counts: correct sponge and instrument Complications: none apparent Disposition: stable to recovery room Prophylaxis: SCD to bilateral lower extremities Specimens: none Findings: Slightly abraded vaginal mucosa Description of procedure: patient was brought to the operating room where she underwent general anesthesia. [facility] I was able to remove the pessary using my hands alone--no instrumentation or incisions needed. It took using 2 fingers on each hand to lever the knob posteriorly and then to direct the anterior lip under the pubic bone. She would not have tolerated this in an awake setting. There were some superficial abrasions of the posterior vagina but nothing bleeding. No erosions. Pessary discarded. She was returned to the supine position prior to waking.
[2020-07-14 11:35] VITALS: BP 157/84
--- NOTE | 2020-07-14 12:36 | ANESTHESIA POST OP EVALUATION ---
Anesthesia Post Eval - Post Anesthesia Eval Vitals: Last Vital Signs Temp 36.2 C L 07/14/20 11:20 Pulse 67 07/14/20 11:20 Resp 18 07/14/20 11:20 BP 157/84 H 07/14/20 11:20 Pulse Ox 97 07/14/20 11:20 CV Function Including HR & BP: Stable Pain Control: Satisfactory Nausea & Vomiting: Negative Mental Status: Baseline Respiratory Status: Airway Patent Hydration Status: Satisfactory Anesthesia Complications: None
== END 2020-07-14 07:34 | disposition home or self-care (01) ==
LOC: SDS 07:33
PROVIDERS: ATTEND Obstetrics & Gynecology
DX: T83.428A Displacement of other prosthetic devices, implants and grafts of genital tract, initial encounter (principal); X58.XXXA Exposure to other specified factors, initial encounter; I10 Essential (primary) hypertension; E78.00 Pure hypercholesterolemia, unspecified; E11.9 Type 2 diabetes mellitus without complications; K52.9 Noninfective gastroenteritis and colitis, unspecified; M19.90 Unspecified osteoarthritis, unspecified site; R32 Unspecified urinary incontinence; R35.0 Frequency of micturition; R15.9 Full incontinence of feces; Z74.09 Other reduced mobility; Z20.822 Contact with and (suspected) exposure to COVID-19; Z96.651 Presence of right artificial knee joint; Z79.82 Long term (current) use of aspirin; Z79.84 Long term (current) use of oral hypoglycemic drugs; Z79.1 Long term (current) use of non-steroidal anti-inflammatories (NSAID); Z79.899 Other long term (current) drug therapy; Z87.891 Personal history of nicotine dependence
CPT/HCPCS: 58999; 87631; J7120; 0202U

== ENCOUNTER 2020-08-11 08:00 | Outpatient (CLI) | payer MEDICARE | END 2020-08-11 08:01 | disposition home or self-care (01) | LOC: LAB.WC 08:00 | PROVIDERS: ATTEND Obstetrics & Gynecology | DX: R35.0 Frequency of micturition (principal) | CPT/HCPCS: 87077; 87086; 87181 ==

== ENCOUNTER 2020-08-12 08:00 | Outpatient (CLI) | payer MEDICARE | END 2020-08-12 23:59 | disposition home or self-care (01) | LOC: LAB.R 08:00 | PROVIDERS: ATTEND Obstetrics & Gynecology | DX: R35.0 Frequency of micturition (principal) | CPT/HCPCS: 87086 ==

== ENCOUNTER 2022-03-01 21:46 | Outpatient (CLI) | payer MEDICARE | END 2022-03-01 21:47 | disposition EMS.NT | LOC: EMS 21:46 | DX: R55 Syncope and collapse (principal) ==

== ENCOUNTER 2022-05-24 08:30 | Outpatient (CLI) | payer MEDICARE ==
--- NOTE | 2022-05-24 18:28 | DEXA Report ---
PROCEDURE: Dexa Spine and/or Hip INDICATIONS: POST MENOPAUSAL TECHNIQUE: Dual energy x-ray absorptiometry (DXA) was performed on a [employer] System. Regions measur ed are the AP Spine, femoral neck, and if needed forearm. COMPARISON: 11/09/2015 FINDINGS: Lumbar Spine: Bone Mineral Density 1.579 g/cm/cm,T score 3.3, normal. Previous T score 3.6. Since the prior exam there has been a significant interval decrease in bone mineral density. Left Femoral Neck: Bone Mineral Density 1.130 g/cm/cm, T score 0.7, normal. Previous T score 0.7. Left Hip: Bone Mineral Density 1.001 g/cm/cm,T score -0.1, normal. Previous T score 0.7. Since the prior exam there has been a significant interval decrease in bone mineral density. (T score greater or equal to -1.0: NORMAL) (T score from -1.1 to -2.4: OSTEOPENIA) (T score less than or equal to -2.5 to: OSTEOPOROSIS) Impression: Normal bone mineral density. Patients with diagnosis of osteoporosis or osteopenia should have regular bone mineral density assess ment. For those eligible for Medicare, routine testing is allowed once every 2 years. Testing frequ ency can be increased for patients who have rapidly progressing disease or for those who are receivin g medical therapy to restore bone mass. Reviewed by: Vish Ware MD on 05/24/2022 6:26 PM PST Approved by: Vish Ware MD on 05/24/2022 6:26 PM PST Station ID: [id number]
== END 2022-05-24 08:31 | disposition home or self-care (01) ==
LOC: DI 08:30
PROVIDERS: ATTEND Nurse Practitioner Family
DX: Z78.0 Asymptomatic menopausal state (principal)

== ENCOUNTER 2022-05-24 08:31 | Outpatient (CLI) | payer MEDICARE ==
--- NOTE | 2022-05-25 10:59 | Mammography Report ---
BILATERAL DIGITAL SCREENING MAMMOGRAM 3D/2D: 05/24/2022 CLINICAL: Routine screening. Comparison is made to exams dated: 05/11/2020 mammogram, 01/31/2018 mammogram, 11/02/2015 mammogram, mammogram, 09/16/2013 mammogram, and 09/03/2012 mammogram - [facility]. Both breasts are heterogeneously dense, which may obscure small masses (category c / 51-75% glandular tissue). There are calcifications in both breasts that are not significantly changed. There is a new 0.6 cm oval equal density asymmetry in the left breast posterior depth lateral region seen on the craniocaudal view only. No other significant masses, calcifications, or other findings are seen in either breast. IMPRESSION: INCOMPLETE: NEEDS ADDITIONAL IMAGING EVALUATION The new 0.6 cm oval equal density asymmetry in the left breast resembles a cyst or a lymph node and i s indeterminate. Additional views with possible ultrasound are recommended. Based on the Tyrer Cuzick model (a risk assessment model) the patients lifetime risk is 3.6% and her 10 year risk is 0.0%. According to the ACR, ACS, and NCCN guidelines, an annual breast MRI exam carissa g with mammogram is recommended if the patients lifetime risk is 20% or greater. This exam was interpreted at Station ID: [id number]. NOTE: For mammograms, a report in lay terms will be sent to the patient. Approximately 15% of breast malignancies will not be visualized mammographically. In the management of a palpable breast mass, a negative mammogram must not discourage biopsy of a clinically suspicious lesion. Electronically Signed By: Cuate Sethi M.D. aty/:05/24/2022 15:21:59 ACR BI-RADS Category 0: Incomplete 3340F PARENCHYMAL PATTERN: (D) - The breast(s) demonstrate(s) heterogeneously dense fibroglandular parmadeline soto. BI-RADS CATEGORY: (0) - 0 Mammo and [place] [id number] Immediate follow-up LATERALITY: (L)
== END 2022-05-24 08:32 | disposition home or self-care (01) ==
LOC: DI 08:31
PROVIDERS: ATTEND Nurse Practitioner Family
DX: Z12.31 Encounter for screening mammogram for malignant neoplasm of breast (principal); R92.8 Other abnormal and inconclusive findings on diagnostic imaging of breast